=== PATIENT | male | born 1950 | race Caucasian/White ===

== ENCOUNTER 2021-08-16 09:50 | Emergency (ER) | payer MEDICARE, OTHER ==
[~2021-08-16] VITALS: Ht 172 cm; Wt 104.0 kg
[~2021-08-16 09:50] MED LIST: ASCO500T17 PO; ASPI-1238 PO; CHOL200074 PO; DOCU-143 PO; HYDR-4226 PO; OMEP20CA18 PO
[2021-08-16 09:55] VITALS: BP 152/64
--- OUTSIDE RECORDS SUMMARY | 2021-08-16 09:55 | XMS REPORT | Clinical Summary ---
Author Author [facility] Organization [facility] Address Unknown Phone Unavailable Care Team Providers Care Medical Coding Manager Name Role Phone Carmela Altamirano MD PCP Source Comments Some departments are not documenting in the electronic medical record. If you d o not see the information that you expected, contact Release of Information in [facility] [employer] Information Management department at [phone] for further assistan ce in locating additional records.[facility] Allergies Not on File Medications Not on file Active Problems Not on file Social History Date Tobacco Use Types Packs/Day Years Used Never Assessed Sex Assigned at Date Recorded Not on file Last Filed Vital Signs Not on file Plan of Treatment Health Maintenance Due Date Last Done Comments MEDICARE ANNUAL WELLNESS 1950 VISIT DTAP/TDAP VACCINES (1 - 1967 Tdap) HEPATITIS C SCREENING 1967 PHYSICAL (COMPREHENSIVE) 1967 EXAM COLORECTAL CANCER 1999 SCREENING SHINGLES RECOMBINANT 1999 VACCINE (1 of 2) PNEUMONIA (PPSV23) 2014 VACCINE (1 of 1 - PPSV23) INFLUENZA VACCINE 06/06/2021 Results Not on filefrom Last 3 Months Insurance Type Payer Benefit Subscriber ID Effective Phone Address Plan / Dates Group Medicare MEDICARE MEDICARE [id number] 2014-P PART A AND resent B HMO [id number] 2016-P FOR LIFE resent [id number] [id number] Advance Directives Patient [employer] Explanation Type Date Recorded Advance Directive/DPOA
--- NOTE | 2021-08-16 10:11 | ED Upper Extremity ---
General Chief Complaint: Laceration Stated Complaint: LT THUMB LAC Nursing Triage Note: ARRIVED VIA AMB TO ROOM FS05. LACERATION TO LEFT THUMB BY A TABLE SAW THIS AM. Source: patient History of Present Illness Date Seen by Provider: Aug 16, 2021 Time Seen by Provider: 09:52 Initial Comments 71-year-old male presenting with laceration to his left thumb. He had been working with a table saw cutting some wood and he accidentally got his thumb caught by the table saw. He is unsure of his last tetanus booster. He has pain at the site of the cut. He has bleeding controlled on arrival to the ED. He has normal range of motion and sensation. Onset: just prior to arrival Severity: moderate Pain/Injury Location: left thumb Method of Injury: other (Accidentally cut with table saw) Modifying Factors: Worse With Movement Allergies and Home Medications Allergies Coded Allergies: piperacillin (Verified Allergy, Intermediate, 04/15/20) Throat tightness, Facial flushing and swelling tazobactam (Verified Allergy, Intermediate, 04/15/20) Throat tightness, Facial flushing and swelling Patient Home Medication List Home Medication List Reviewed: Yes Ascorbic Acid (Vitamin C) 500 Mg Tablet, 500 MG PO DAILY, (Reported) Entered as Reported by: SHAGUFTA VASQUEZ on 04/15/20 1121 Aspirin (Aspirin EC) 81 Mg Tablet., 81 MG PO DAILY, (Reported) Entered as Reported by: SHAGUFTA VASQUEZ on 04/15/20 1121 Cephalexin (Cephalexin) 500 Mg Tablet, 500 MG PO TID Prescribed by: MADELINE MONROE on 08/16/21 1223 Cholecalciferol (Vitamin D3) (Vitamin D3) 50 Mcg Capsule, 50 MCG PO DAILY, (Reported) Entered as Reported by: SHAGUFTA VASQUEZ on 04/15/20 1121 Docusate Sodium (Colace) 100 Mg Capsule, 100 MG PO BID Prescribed by: ROSEMARIE NICKERSON on 04/15/20 1326 Hydrocodone/Acetaminophen (Hydrocodone/Acetaminophen 5 MG/325 MG TAB) 1 Each Tablet, 1 TAB PO Q4-6HR Prescribed by: ROSEMARIE NICKERSON on 04/15/20 1326 Omeprazole (Omeprazole) 20 Mg Capsule., 20 MG PO DAILY PRN for HEARTBURN, (Reported) Entered as Reported by: SHAGUFTA VASQUEZ on 04/15/20 1121 Review of Systems Constitutional: No chills, No fever EENTM: no symptoms reported Respiratory: no symptoms reported Cardiovascular: no symptoms reported Gastrointestinal: no symptoms reported Genitourinary: no symptoms reported Musculoskeletal: see HPI Skin: see HPI Psychiatric/Neurological: Denies Numbness, Denies Paresthesia Past Zeprunr-Lztquw-Esnebf Hx Patient Social History Smoking Status: Never a Smoker Substance use?: No Alcohol Use?: Yes Alcohol type: Beer Alcohol Frequency: Once in a while Immunizations Up To Date Second COVID19 Vaccination Joey: 01/24 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 oz. kg; 35.00 BMI Method: General Appearance: WD/WN, no apparent distress Cardiovascular: normal peripheral pulses Hand: normal ROM, Left (Thumb), laceration (Macerated tissue and laceration to the left distal thumb), nail injury (Mild laceration to the tip of the nail.), soft tissue tenderness Neurologic/Tendon: normal sensation, normal motor functions, normal tendon functions Neurologic/Psychiatric: split leather mosser II-XII nml as tested, no motor/sensory deficits, alert, oriented x 3 Skin: normal color, warm/dry Procedures/Interventions Wound Location: Upper Extremities (left thumb) Wound Length (cm): 3.1 Wound's Depth, Shape: irregular, flap, contused tissue, sub Q Wound Explored: clean Irrigated w/ Saline (ccs): 100 Anesthesia: 1% Lidocaine Suture: Ethlion Suture Size: 4-0 Number of Sutures: 7 Layer Closure?: 1 Number Deep Layer Sutures: 0 Sterile Dressing Applied?: Yes Progress After obtaining verbal consent from the patient the wound was anesthetized with 1% plain lidocaine. A digital block was placed with 4 mL of 1% plain lidocaine. Some additional 2 ml of 1% plain lidocaine were infiltrated into the laceration. Wound was explored and scrubbed with chlorhexidine scrub soap and sterile water. No foreign bodies were seen. The wound edges were approximated using 4-0 Ethilon for a total of 7 simple interrupted stitches. Patient tolerated procedure well without any immediate complication. Counseled on follow up and return precautions. Stitches to be removed in 14 days on or be seen sooner if concern for infection. Since involved wood and table saw with macerated tissue placed on Keflex 500 mg TID x 5 days. Progress/Results/Core Measures Results/Orders My Orders Orders - MADELINE MONROE MD Finger(S) (08/16/21 10:20) Suture Set At Bedside (08/16/21 10:20) Lidocaine 1% Inj 20 Ml (Xylocaine 1% Inj (08/16/21 10:20) Dipht,Pertuss(Acell),Tet Adult (Boostrix (08/16/21 10:30) Medications Given in ED Current Medications Medications Dose Ordered Sig/Shane Route Start Time Stop Time Status Last Admin Dose Admin Diphtheria/ Tetanus/Acell Pertussis 0.5 ml ONCE ONCE IM 08/16/21 10:30 08/16/21 10:31 DC 08/16/21 10:30 0.5 ML Vital Signs/I&O 08/16/21 09:55 Temp 36.3 Pulse 77 Resp 16 B/P (MAP) 152/64 (93) Pulse Ox 96 O2 Delivery Room Air Blood Pressure Mean: 93 Progress Progress Note #1: Progress Note Obtain x-ray to evaluate for bony injury or foreign bodies. Update tetanus booster Progress Note #2: Progress Note No acute fracture or bony injury or foreign body seen on x-rays. Patient tolerated wound repair and cleaning without any immediate complication. Counseled on follow-up and return precautions. Will place on 5 days of antibio tics. Stitches out in 2 weeks or be seen sooner if having complications or concerns Diagnostic Imaging Diagonstic Imaging: Xray Plain Films/CT/US/NM/MRI: other (thumb) Comments [facility] [place], [place] NAME: JAZLYN LAMB E MED REC#: [id number] PT STATUS: REG ER : 1950 PHYSICIAN: MADELINE MONROE MD ADMIT DATE: 08/16/21/ER FS Draft Date of Exam:08/16/21 FINGER(S) INDICATION: Left thumb laceration. TIME OF EXAM: 10:12 a.m. FINDINGS: Three views of the left thumb were obtained. Alignment is normal. Bony structures appear intact. No fractures are seen. No definite radiopaque soft tissue foreign body is identified. There does appear to be a soft tissue injury involving the tip of the thumb. IMPRESSION: Soft tissue injury. No foreign body or acute bony abnormality is detected. Dictated on workstation # [id number] Dict: 08/16/21 1047 Trans: 08/16/21 1050 [id number] Interpreted by: RASHMI GOMES MD Electronically signed by: Reviewed: Reviewed by Me Departure Impression Primary Impression: Laceration of left thumb without foreign body with damage to nail Qualified Codes: S61.112A - Laceration without foreign body of left thumb with damage to nail, initial encounter Additional Impression: Contact with powered saw as cause of accidental injury Disposition: HOME, SELF-CARE Condition: Stable Departure-Patient Inst. Decision time for Depature: 12:23 Referrals: YUNIER SANDERS MD (PCP/Family) Primary Care Physician Patient Instructions: Laceration Repair With Stitches ED, Common Finger Injuries ED Add. Discharge Instructions: Keep dressing in place, clean and dry for first 24 hours. Then may wash with soap and water like normal but do not soak the thumb or injury in water. Apply antibiotic ointment and cover with bandaid or dressing 2 to 3 times a day as needed for next week. After that you only need to cover the wound if it is catching on clothes and things around you or if it might get dirty. Stitches out in 2 weeks on MondayAugust 30. Be seen sooner if concern for infection such as redness streaking up the thumb and hand, fever over 101 F, pus draining from wound. All discharge instructions reviewed with patient and/or family. Voiced understanding. Scripts Cephalexin (Cephalexin) 500 Mg Tablet 500 MG PO TID for thumb laceration for 5 Days, #15 TAB 0 Refills Prov: MADELINE MONROE MD 08/16/21 Images Extremities-Upper 1 - Laceration (Laceration to the left thumb with small extension into the tip of the nail) MADELINE MONROE MD Aug 16, 2021 10:11
[2021-08-16] MEDS ORDERED: LIDOCAINE 1% INJ 20 ML 20 ML VIAL INJ STA (10:20)
[2021-08-16] MEDS ORDERED: TETANUS,DIPTH,PERTUSS P/F (BOOSTRIX) 0.5 ML VIAL IM ONE (10:30)
--- NOTE | 2021-08-16 10:50 | Diagnostic Imaging Report ---
INDICATION: Left thumb laceration. TIME OF EXAM: 10:12 a.m. FINDINGS: Three views of the left thumb were obtained. Alignment is normal. Bony structures appear intact. No fractures are seen. No definite radiopaque soft tissue foreign body is identified. There does appear to be a soft tissue injury involving the tip of the thumb. IMPRESSION: Soft tissue injury. No foreign body or acute bony abnormality is detected. Dictated by: Dictated on workstation # [id number]
[2021-08-16] MEDS ORDERED: CEPH500T PO (12:23)
== END 2021-08-16 12:31 | disposition home or self-care (01) ==
LOC: EDUNIT# 09:50 → ER FS 09:52
DX: S61.112A Laceration without foreign body of left thumb with damage to nail, initial encounter (principal); K21.9 Gastro-esophageal reflux disease without esophagitis; Z23 Encounter for immunization; Z79.82 Long term (current) use of aspirin; Z79.899 Other long term (current) drug therapy; W31.2XXA Contact with powered woodworking and forming machines, initial encounter
CPT/HCPCS: 12042; 64450; 73140; 90715